=== PATIENT | male | born 1985 | race Caucasian/White ===

== ENCOUNTER 2018-02-12 12:03 | Emergency (ER) | payer OTHER ==
[2018-02-12] MEDS: HYDROCODONE/APAP (10/325) TAB PO (13:18)
== END 2018-02-12 14:26 | disposition home or self-care (01) ==
LOC: FTE 12:03
DX: R07.89 Other chest pain (principal); Z87.891 Personal history of nicotine dependence
CPT/HCPCS: 71045; 93005; 99284-25